=== PATIENT | female | born 1945 | race Caucasian/White ===

== ENCOUNTER 2021-10-21 21:05 | Inpatient (IN) | payer MEDICARE, BC ==
[~2021-10-21] VITALS: Ht 157.5 cm; Wt 78.5 kg
--- NOTE | 2021-10-21 21:15 | NUR ---
TO ER BED 7. [id number] C/O ABD PAIN, FEVER AND CONFUSION NOTED BY STARTED YESTERDAY. PT AAOX2. AMBULATORY W/ ASSISTANCE. PT DENIES ANY CHEST PAIN. O2 SAT NOTED AT 95 ON ROOM AIR, HX COPD. CONNECTED TO MONITOR. AWAITING MD COHEN
--- NOTE | 2021-10-21 21:23 | NUR ---
XRAY AT BEDSIDE
--- NOTE | 2021-10-21 21:23 | NUR ---
IV LINE ESTABLISHED, RHAND 18G. BLOOD COLLECTED AND SENT TO LAB
--- NOTE | 2021-10-21 21:29 | NUR ---
PT TAKEN TO CT VIA RAMÍREZ
[2021-10-21 21:44] LABS: BASOPHILS % (AUTO) 0.2 % (0.0-2.0); EOSINOPHILS % (AUTO) 0.4 % (0.0-6.0); HEMATOCRIT 43 % (33-45); HEMOGLOBIN 14.7 g/dL (11.5-14.8); LYMPHOCYTES # (AUTO) 0.5 K/uL (0.8-4.8); LYMPHOCYTES % (AUTO) 6.9 % (20.0-44.0); MEAN CORPUSCULAR HGB CONC 35 g/dl (31.0-36.0); MEAN CORPUSCULAR VOLUME 94 fL (82-100); MONOCYTES # (AUTO) 0.1 K/uL (0.1-1.30); MONOCYTES % (AUTO) 1.1 % (2.0-12.0); NEUTROPHILS # (AUTO) 6.4 K/uL (1.8-8.9); NEUTROPHILS % (AUTO) 91.4 % (43.0-81.0); PLATELET COUNT (AUTO) 216 K/uL (150-450)
[2021-10-21 22:02] LABS: CALCIUM, SERUM 8.9 mg/dL (8.5-10.1); CARBON DIOXIDE 24 mmol/L (21-32); CHLORIDE 104 mmol/L (98-107); GLUCOSE 117 mg/dL (74-106); POTASSIUM 3.9 mmol/L (3.5-5.1); SODIUM SERUM 138 mmol/L (136-145); UREA NITROGEN, BLOOD 19 mg/dL (7-18)
[2021-10-21 22:21] LABS: ALANINE AMINOTRANSFERASE 849 U/L (12-78); ALBUMIN 3.8 g/dL (3.4-5.0); ALKALINE PHOSPHATASE 215 U/L (46-116); ASPARTATE AMINOTRANSFERASE 1396 U/L (15-37); BILIRUBIN,DIRECT 1.4 mg/dL (0.0-0.2); BILIRUBIN,TOTAL 2.1 mg/dL (0.2-1.0); LIPASE 126 U/L (73-393); TOTAL PROTEIN, SERUM 6.8 g/dL (6.4-8.2)
--- NOTE | 2021-10-21 22:25 | NUR ---
URINE SAMPLE COLLECTED AND SENT TO LAB
[2021-10-21 22:30] LABS: BILIRUBIN,URINE NEGATIVE (NEGATIVE); COLOR,URINE YELLOW (YELLOW); LEUKOCYTE ESTERASE ,URINE NEGATIVE (NEGATIVE); NITRITE, URINE NEGATIVE (NEGATIVE); PROTEIN,URINE NEGATIVE (NEGATIVE); UGLUCOSE NEGATIVE (NEGATIVE); UROBILINOGEN,URINE 0.2 EU/dL (0.2)
[2021-10-21] MEDS ORDERED: IV NS 0.9% 1,000 ML IV ONE (22:30)
[2021-10-21] MEDS ORDERED: VANCOMYCIN 1 GM in IV D5W 250 ML IV ONE ×4 (22:30)
[2021-10-21] MEDS ORDERED: MORPHINE SULFATE INJ 2 MG/ML DISP.SYRIN IV ONE (22:30)
[2021-10-21] MEDS ORDERED: methylPREDNISolone SOD SUCC 125 MG/2ML VIAL IV ONE (22:30)
[2021-10-21] MEDS ORDERED: ONDANSETRON HCL/PF 4 MG/2 ML VIAL IVP ONE (22:30)
[2021-10-21] MEDS ORDERED: CEFEPIME 1 GM in IV D5W 50 ML IV ONE (22:30)
[2021-10-21] MEDS ORDERED: ALBUTEROL FS 2.5 MG/3 ML VIAL.NEB NEB ONE (22:30)
[2021-10-21] MEDS ORDERED: IV NS 0.9% 1,000 ML BAG IV ONE (22:30)
[2021-10-21] MEDS ORDERED: IPRATROPIUM NEB FS 0.5 MG/2.5 ML AMPUL.NEB NEB ONE (22:30)
--- NOTE | 2021-10-21 22:33 | NUR ---
COVID ANTIGEN SWAB COLLECTED AND SENT TO LAB
[2021-10-21 23:05] LABS: SERUM AMMONIA 52 umol/L (11-32)
[2021-10-21] MEDS ORDERED: ONDANSETRON HCL/PF 4 MG/2 ML VIAL IVP PRN (23:30)
[2021-10-21] MEDS ORDERED: ZOLPIDEM TARTRATE 5 MG TABLET PO PRN (23:30)
[2021-10-21] MEDS ORDERED: MAGNESIUM HYDROXIDE 30 ML UDC PO PRN (23:30)
[2021-10-21] MEDS ORDERED: Z GUARD REMEDY 4 OZ OINT TP PRN (23:30)
[2021-10-21] MEDS ORDERED: MAG HYDROX/AL HYDROX/SIMETH 30 ML UDC PO PRN (23:30)
[2021-10-21] MEDS ORDERED: ACETAMINOPHEN 325 MG TABLET PO PRN (23:30)
[2021-10-21] MEDS ORDERED: MORPHINE SULFATE INJ 2 MG/ML DISP.SYRIN IV PRN (23:30)
--- NOTE | 2021-10-21 23:42 | NUR ---
procalcitonin 2.58
[2021-10-21 23:43] LABS: THYROID STIMULATING HORMONE 2.446 uIU/mL (0.358-3.74)
[2021-10-21 23:44] LABS: ACETAMINOPHEN < 2 ug/ml (10-30)
[2021-10-22] MEDS ORDERED: IOHEXOL-350 100 ML VIAL IV ONE (01:27)
[2021-10-22] MEDS ORDERED: CEFEPIME 1 GM VIAL ONE (01:55)
[2021-10-22] MEDS ORDERED: VANCOMYCIN 1 GM VIAL ONE (01:55)
[2021-10-22] MEDS ORDERED: methylPREDNISolone SOD SUCC 125 MG/2ML VIAL ONE (01:55)
--- NOTE | 2021-10-22 02:12 | NUR ---
us tech at bed side
--- NOTE | 2021-10-22 02:54 | NUR ---
DIAN PROVIDED AT BEDSIDE.
[2021-10-22] MEDS ORDERED: MAGN400T8 PO (03:22)
[2021-10-22] MEDS ORDERED: BIOF1TAB7 PO (03:22)
[2021-10-22] MEDS ORDERED: CHOL100L MC (03:22)
[2021-10-22] MEDS ORDERED: FLUT1BLS6 IH (03:22)
[2021-10-22] MEDS ORDERED: BUPR-54 PO (03:22)
[2021-10-22] MEDS ORDERED: [UNRECOGNIZED DRUG - CODE] PO (03:22)
[2021-10-22] MEDS ORDERED: CELE200C PO (03:22)
[2021-10-22] MEDS ORDERED: GLUC-141 PO (03:22)
[2021-10-22] MEDS ORDERED: ASCO100058 PO (03:22)
[2021-10-22] MEDS ORDERED: CETI-355 PO (03:22)
[2021-10-22] MEDS ORDERED: MELO-107 PO (03:22)
[2021-10-22] MEDS ORDERED: ATOR10TA PO (03:22)
[2021-10-22] MEDS ORDERED: LEVO75TA7 PO (03:22)
[2021-10-22] MEDS ORDERED: LANS30CA56 PO (03:22)
[2021-10-22] MEDS ORDERED: PYRI50TA15 PO (03:22)
[2021-10-22] MEDS ORDERED: CALC-1239 PO (03:22)
[2021-10-22] MEDS ORDERED: IPRATROPIUM NEB FS 0.5 MG/2.5 ML AMPUL.NEB ONE (03:42)
[2021-10-22] MEDS ORDERED: ALBUTEROL FS 2.5 MG/3 ML VIAL.NEB ONE (03:42)
--- NOTE | 2021-10-22 03:48 | NUR ---
REPORT GIVEN TO AMA.
[2021-10-22 04:10] VITALS: BP 110/62
--- NOTE | 2021-10-22 04:10 | NUR ---
EMPLOYEE WELFARE MANAGER NOTES: RECEIVED REPORT FROM YVONNE ROBINS. PT TRANSFERRED TO [facility] FROM ER VIA GURNEY, PLACED IN ROOM 108 BED 1. PT AWAKE, ALERT/ORIENTED X3 AND VERBALLY RESPONSIVE. ON O2 AT 2L/MIN VIA N/C, O2 SAT 93%. PT TOLERATED WELL. IV ACCESS ON RT HAND#18G AND LAC#18G INTACT AND PATENT. NO S/S OF INFILTRATIONS. BODY ASSESSMENT DONE. NO OPEN SKIN OR SKIN DISCOLORATIONS NOTED. NO C/O PAIN OR DISCOMFORT AT THIS MOMENT. NO ACUTE DISTRESS. CONTINENT ON BLADDER AND BOWEL. ASSISTED HER TO THE BATHROOM. ALL SAFETY MEASURES IN PLACE. BED IN LOWEST POSITION AND LOCKED. SIDE RAILS UP X2, PLACE CALL LIGHT WITH IN REACH. WILL CONTINUE TO MONITOR.
--- NOTE | 2021-10-22 04:13 | NUR ---
PT TRANSFERRED TO [facility] 108 VIA ACLS PROTOCOL. VSS. PT TOLERATING O2 2LPM N/C WELL AT 98%
[2021-10-22] MEDS: IV D5/0.45 NACL 1,000 ML IV PRN (06:44)
--- NOTE | 2021-10-22 07:30 | NUR ---
CARE PROGRAM DIRECTOR NOTES PT IN BED, AWAKE, ALERT AND ORIENTED, NO COMPLAINT OF PAIN AT THIS TIME, RESPIRATIONS NORMAL, CALL LIGHT WITHIN REACH, NEEDS ATTENDED, KEPT NPO FOR NOW.
[2021-10-22 07:41] LABS: BASOPHILS % (AUTO) 0.1 % (0.0-2.0); EOSINOPHILS % (AUTO) 0.1 % (0.0-6.0); HEMATOCRIT 41 % (33-45); HEMOGLOBIN 13.9 g/dL (11.5-14.8); LYMPHOCYTES # (AUTO) 0.3 K/uL (0.8-4.8); LYMPHOCYTES % (AUTO) 2.2 % (20.0-44.0); MEAN CORPUSCULAR HGB CONC 34 g/dl (31.0-36.0); MEAN CORPUSCULAR VOLUME 96 fL (82-100); MONOCYTES # (AUTO) 0.2 K/uL (0.1-1.30); MONOCYTES % (AUTO) 1.6 % (2.0-12.0); NEUTROPHILS # (AUTO) 11.1 K/uL (1.8-8.9); PLATELET COUNT (AUTO) 207 K/uL (150-450); RED BLOOD CELL COUNT(AUTO) 4.33 MIL/uL (4.0-5.2); WHITE BLOOD COUNT (AUTO) 11.6 K/uL (4.3-11.0)
[2021-10-22 08:00] VITALS: BP 152/77
[2021-10-22 08:24] LABS: ALBUMIN 3.7 g/dL (3.4-5.0); ALKALINE PHOSPHATASE 202 U/L (46-116); BILIRUBIN,DIRECT 3.1 mg/dL (0.0-0.2); BILIRUBIN,TOTAL 3.6 mg/dL (0.2-1.0); CALCIUM, SERUM 8.4 mg/dL (8.5-10.1); CARBON DIOXIDE 25 mmol/L (21-32); CHLORIDE 110 mmol/L (98-107); GLUCOSE 182 mg/dL (74-106); MAGNESIUM 2.1 mg/dL (1.8-2.4); PHOSPHORUS 3.2 mg/dL (2.5-4.9); POTASSIUM 3.7 mmol/L (3.5-5.1); SODIUM SERUM 144 mmol/L (136-145); TOTAL PROTEIN, SERUM 6.6 g/dL (6.4-8.2); UREA NITROGEN, BLOOD 15 mg/dL (7-18)
[2021-10-22 08:26] LABS: ALANINE AMINOTRANSFERASE 1504 U/L (12-78); ASPARTATE AMINOTRANSFERASE 1438 U/L (15-37)
[2021-10-22] MEDS: ASPIRIN 81 MG TAB.CHEW PO SCH ×2 (08:50→08:56)
[2021-10-22] MEDS: LACTULOSE 10 G/15 ML UDC (PYXIS) PO SCH ×2 (08:50→16:17)
[2021-10-22] MEDS ORDERED: MULT-1200 PO (08:58)
[2021-10-22] MEDS ORDERED: CHOL400C8 PO (08:58)
[2021-10-22] MEDS ORDERED: ALBU18HF2 IH (08:58)
[2021-10-22] MEDS ORDERED: PANTOPRAZOLE 40 MG VIAL IV SCH (09:00)
[2021-10-22 12:00] VITALS: BP 133/76
[2021-10-22] MEDS ORDERED: HOME MED MISCELLANEOUS XX SCH ×4 (13:30)
[2021-10-22] MEDS ORDERED: ALBUTEROL FS 2.5 MG/0.5 ML VIAL.NEB IH PRN (13:30)
[2021-10-22] MEDS ORDERED: LACTULOSE 10 G/15 ML UDC (PYXIS) PO PRN (13:30)
--- NOTE | 2021-10-22 13:35 | NUR ---
DRILLING AND PRODUCTION SUPERINTENDENT NOTES PT SEEN AND EXAMINED BY DR. BAKER, PLAN OF CARE DISCUSSED WITH PT AND FAMILY AT BEDSIDE, VERBALIZED UNDERSTANDING.
[2021-10-22] MEDS: CEFEPIME 2 GM in IV D5W 100 ML IV SCH (14:38)
[2021-10-22 16:00] VITALS: BP 139/76
[2021-10-22] MEDS: MELOXICAM 7.5 MG TABLET PO SCH (16:17)
[2021-10-22] MEDS: ATORVASTATIN 10 MG TABLET PO SCH (16:18)
[2021-10-22] MEDS: BUPROPION XL 150 MG TAB.ER.24 PO SCH (16:18)
[2021-10-22] MEDS: ASCORBIC ACID 500 MG TABLET PO SCH (16:18)
[2021-10-22] MEDS: MULTIVIT W/MINERALS 1 TAB TABLET PO SCH (16:18)
[2021-10-22] MEDS: LEVOTHYROXINE SODIUM 75 MCG TABLET PO SCH (16:18)
[2021-10-22] MEDS: MAGNESIUM OXIDE 400 MG TABLET PO SCH (16:19)
[2021-10-22] MEDS: PYRIDOXINE HCL 50 MG TABLET PO SCH (16:19)
--- NOTE | 2021-10-22 19:00 | NUR ---
POST DOC FELLOWSHIP NOTES PT IN BED, AWAKE, ALERT AND ORIENTED, DENIES PAIN, NOT IN DISTRESS, ABLE TO AMBULATE WITH STEADY GAIT TO THE BATHROOM, TOLERATES CURRENT DIET, CALL LIGHT WITHIN REACH, IV FLUIDS INFUSING WELL, ALL DUE MEDS GIVEN ORDERED.
[2021-10-22 20:00] VITALS: BP 134/78
--- NOTE | 2021-10-22 20:13 | NUR ---
water treatment plant supervisor Opening Note Pt received in bed awake, A&O x3-4, calm, cooperative. Endorsed to me by marco a nurse pt is off and on NC when she uses the restroom. Upon checking pt, she is off of NC, pt reports she "feels ok without it"; will monitor O2sat as needed. Pt attached to external monitor, currently SR with HR. Pt ambulatory with steady gait. IV access LAC 18G intact and patent; no s/s of infiltration, currently has D5 1/2 NS running at 100 ml/hr. Bed in lowest position, call light within reach, side rails up x2. Will continue to monitor throughout the night.
[2021-10-22] MEDS: cetrizine 10 MG TABLET PO SCH (21:50)
[2021-10-22] MEDS: CALCIUM CARB 600MG /VIT D 1 EACH TABLET PO SCH (21:58)
[2021-10-22] MEDS: VANCOMYCIN 1.25 GM in IV D5W 250 ML IV SCH (22:00)
--- NOTE | 2021-10-22 23:35 | NUR ---
[facility]/BAND SEWER REPORT RECIEVED FROM YVONNE APONTE FOR CONTINUITY OF CARE. CALL LIGHT IS WITHIN REACH AT THIS TIME. NO ACUTE DISTRESS SEEN AT THIS TIME.
[2021-10-23] VITALS: BP 141/92
--- NOTE | 2021-10-23 00:45 | NUR ---
[facility]/CLIP WRAPPER NEW IV TO RIGHT FA#20G. IVF CHANGED OVER TO THIS SITE. OTHER SITE WAS SWOLLEN AND RED, D/C'D THESE HEPLOCKS
[2021-10-23] MEDS: CEFEPIME 2 GM in IV D5W 100 ML IV SCH ×2 (02:12→14:15)
[2021-10-23 04:00] VITALS: BP 112/70
[2021-10-23] MEDS: IV D5/0.45 NACL 1,000 ML IV PRN ×2 (04:12→18:42)
[2021-10-23] MEDS: LEVOTHYROXINE SODIUM 75 MCG TABLET PO SCH (06:08)
[2021-10-23 06:20] LABS: ALANINE AMINOTRANSFERASE 1053 U/L (12-78); ALBUMIN 3.4 g/dL (3.4-5.0); ALKALINE PHOSPHATASE 171 U/L (46-116); ASPARTATE AMINOTRANSFERASE 573 U/L (15-37); BILIRUBIN,DIRECT 2.3 mg/dL (0.0-0.2); BILIRUBIN,TOTAL 2.8 mg/dL (0.2-1.0); CALCIUM, SERUM 8.7 mg/dL (8.5-10.1); CARBON DIOXIDE 25 mmol/L (21-32); CHLORIDE 108 mmol/L (98-107); GLUCOSE 129 mg/dL (74-106); POTASSIUM 3.4 mmol/L (3.5-5.1); SERUM AMMONIA 13 umol/L (11-32); SODIUM SERUM 141 mmol/L (136-145); TOTAL PROTEIN, SERUM 6.4 g/dL (6.4-8.2); UREA NITROGEN, BLOOD 14 mg/dL (7-18)
[2021-10-23 06:37] LABS: BASOPHILS % (AUTO) 0.1 % (0.0-2.0); EOSINOPHILS % (AUTO) 0.6 % (0.0-6.0); HEMATOCRIT 38 % (33-45); HEMOGLOBIN 13.1 g/dL (11.5-14.8); LYMPHOCYTES # (AUTO) 0.9 K/uL (0.8-4.8); LYMPHOCYTES % (AUTO) 8.4 % (20.0-44.0); MEAN CORPUSCULAR HGB CONC 35 g/dl (31.0-36.0); MEAN CORPUSCULAR VOLUME 94 fL (82-100); MONOCYTES # (AUTO) 0.4 K/uL (0.1-1.30); MONOCYTES % (AUTO) 3.8 % (2.0-12.0); NEUTROPHILS # (AUTO) 8.8 K/uL (1.8-8.9); NEUTROPHILS % (AUTO) 87.1 % (43.0-81.0); PLATELET COUNT (AUTO) 180 K/uL (150-450); RED BLOOD CELL COUNT(AUTO) 4.04 MIL/uL (4.0-5.2); WHITE BLOOD COUNT (AUTO) 10.1 K/uL (4.3-11.0)
[2021-10-23] MEDS ORDERED: LEVOTHYROXINE SODIUM 75 MCG TABLET PO SCH (07:30)
--- NOTE | 2021-10-23 07:30 | NUR ---
RN OPENING NOTE PATIENT IS IN BED, AWAKE, ON SEMI-STUBBS'S POSITION, ALERT ORIENTED X 4. ON ROOM AIR WITH O2 SATURATION AT 97%. SINUS RHYTHM ON E BUSINESS CONSULTANT. WITH RIGHT FOREARM IV LINE INFUSING WITH D5 1/2 NS AT 100 ML/HR. DENIES PAIN, BREATHING UNLABORED AND NOT IN ANY FORM OF DISTRESS. BED IS LOCKED IN LOWEST POSITION, 3 SIDE RAILS UP, CALL LIGHT WITHIN REACH. WILL CONTINUE TO MONITOR THROUGHOUT SHIFT.
[2021-10-23 08:00] VITALS: BP 153/78
[2021-10-23] MEDS ORDERED: MULTIVIT W/MINERALS 1 TAB TABLET PO SCH (09:00)
[2021-10-23] MEDS ORDERED: PYRIDOXINE HCL 50 MG TABLET PO SCH (09:00)
[2021-10-23] MEDS ORDERED: MAGNESIUM OXIDE 400 MG TABLET PO SCH (09:00)
[2021-10-23] MEDS ORDERED: MELOXICAM 7.5 MG TABLET PO SCH (09:00)
[2021-10-23] MEDS ORDERED: ASCORBIC ACID 500 MG TABLET PO SCH (09:00)
[2021-10-23] MEDS ORDERED: CELECOXIB 100 MG CAPSULE PO SCH (09:00)
[2021-10-23] MEDS ORDERED: BUPROPION XL 150 MG TAB.ER.24 PO SCH (09:00)
[2021-10-23] MEDS ORDERED: ATORVASTATIN 10 MG TABLET PO SCH (09:00)
[2021-10-23] MEDS ORDERED: cetrizine 10 MG TABLET PO SCH (09:00)
[2021-10-23] MEDS ORDERED: CALCIUM CARB 600MG /VIT D 1 EACH TABLET PO SCH (09:00)
[2021-10-23] MEDS: ASPIRIN 81 MG TAB.CHEW PO SCH (09:10)
[2021-10-23] MEDS: LACTULOSE 10 G/15 ML UDC (PYXIS) PO SCH ×3 (09:11→17:20)
[2021-10-23] MEDS: PYRIDOXINE HCL 50 MG TABLET PO SCH (09:11)
[2021-10-23] MEDS: ATORVASTATIN 10 MG TABLET PO SCH (09:11)
[2021-10-23] MEDS: ASCORBIC ACID 500 MG TABLET PO SCH (09:11)
[2021-10-23] MEDS: MAGNESIUM OXIDE 400 MG TABLET PO SCH (09:12)
[2021-10-23] MEDS: BUPROPION XL 150 MG TAB.ER.24 PO SCH (09:12)
[2021-10-23] MEDS: MULTIVIT W/MINERALS 1 TAB TABLET PO SCH (09:12)
[2021-10-23] MEDS: TRELEGY ELLIPTA INH SCH (09:17)
[2021-10-23] MEDS: PANTOPRAZOLE 40 MG TABLET.DR PO SCH (09:20)
[2021-10-23] MEDS: MELOXICAM 7.5 MG TABLET PO SCH (09:52)
[2021-10-23] MEDS ORDERED: POTASSIUM CHLORIDE 20 MEQ POWDER PACKET PO SCH (11:00)
[2021-10-23 12:00] VITALS: BP 159/84
[2021-10-23 16:00] VITALS: BP 162/81
--- NOTE | 2021-10-23 16:20 | NUR ---
SS Consult: SS Consult requested for code stroke. The pt. is a 76-year-old female who was admitted to [facility] due to Altered Mental Status, transaminitis per EMR. Per EMR, the pt. has a history of COPD, tobacco use. SW met with pt. bedside. The pt. was alert & oriented x 4 and makes good eye contact. The pt. appears well-groomed. Pt. denies SI/HI and denies hallucinations. Pt.s , Diomedes Gutierrez cell: [phone] was was at bedside. Pt. stated that she lives with her at [facility] [facility] [facility] [address]; [phone]]. Per pt. she was independent with her ADLs prior to admission but he PT at [facility] recommended walker. Pt. stated she does not have one at home. SW provided empowerment after stroke educational material and pt. accepted it. Pt. denies drug abuse and drinks occasionally. Pt. denies history of mental health illness but states she is on some medication for depression. Pt. stated her support system is her son, Ajay Gutierrez [phone]. Plan: Pt. stated she would like to return home [[address] [facility]. [address] [facility] [address]; [phone]]. with when ready for discharge. SW provided stroke empowerment resources. Pt. accepted them. Pt. scored an 8 on the post stroke depression scale. DANIELLA notified charge nurse, Carla that pt. requires Psych Consult.
--- NOTE | 2021-10-23 19:24 | NUR ---
RN CLOSING NOTE PATIENT REMAINED STABLE THROUGHOUT SHIFT. WITH RIGHT FOREARM IV LINE INTACT AND PATENT. BREATHING UNLABORED, DENIES PAIN, AND NOT IN ANY FORM OF DISTRESS. BED IS LOCKED IN LOWEST POSITION, 3 SIDE RAILS UP, CALL LIGHT WITHIN REACH. WILL ENDORSE TO MANAGER SOFTWARE NURSE.
--- NOTE | 2021-10-23 19:30 | NUR ---
SERVICE CONSULTANT OPENING NOTE RECEIVED PATIENT IN BED, AWAKE, ON SEMI-STUBBS'S POSITION, ALERT/ORIENTED X 4. CURRENTLY ON ROOM AIR, TOLERATING WELL WITH O2 SATURATION OF 97%. SINUS RHYTHM ON AUTOMATION CONTROL INTEGRATOR WITH HR OF 86. IV ACCESS NOTED IN RIGHT FOREARM INFUSING D5 1/2 NS AT 100 ML/HR. DENIES PAIN, BREATHING UNLABORED AND PT IS NOT IN ANY FORM OF DISTRESS. ALL SAFETY MEASURES IN PLACE: BED IS LOCKED IN LOWEST POSITION, 3 SIDE RAILS UP, CALL LIGHT WITHIN REACH. WILL CONTINUE TO MONITOR THROUGHOUT THE SHIFT.
[2021-10-23 20:00] VITALS: BP 143/74
[2021-10-23] MEDS: CALCIUM CARB 600MG /VIT D 1 EACH TABLET PO SCH (21:32)
[2021-10-23] MEDS: cetrizine 10 MG TABLET PO SCH (21:32)
[2021-10-23] MEDS: VANCOMYCIN 1.25 GM in IV D5W 250 ML IV SCH (22:06)
[2021-10-24] VITALS: BP 155/79
[2021-10-24] MEDS: CEFEPIME 2 GM in IV D5W 100 ML IV SCH (01:01)
[2021-10-24 04:00] VITALS: BP 145/83
--- NOTE | 2021-10-24 06:10 | NUR ---
RN NOTE PT'S IV LINE GOT BLOODY. REMOVED IT ALTOGETHER AND PUT A NEW IV LINE ON HER LFA #22G WITH THE HELP OF YVONNE SAENZ.
--- NOTE | 2021-10-24 06:53 | NUR ---
OPTICAL EFFECTS LAYOUT PERSON CLOSING NOTE PT REMAINED STABLE THROUGHOUT THE NIGHT. PATIENT IN BED, ON SEMI-STUBBS'S POSITION, ALERT/ORIENTED X 4. CAN VERBALIZE NEEDS WELL. ON ROOM AIR, TOLERATING WELL WITH O2 SATURATION OF 97%. SINUS RHYTHM ON SALES/MARKETING WITH HR IN THE 60S. NEW IV ACCESS NOTED IN LEFT FOREARM, #22g INFUSING D5 1/2 NS AT 100 ML/HR. DENIES PAIN, BREATHING UNLABORED AND PT IS NOT IN ANY FORM OF DISTRESS. ALL DUE MEDS GIVEN. ALL NEEDS ATTENDED TO. SAFETY MEASURES IMPLEMENTED: BED IS LOCKED IN LOWEST POSITION, 3 SIDE RAILS UP, CALL LIGHT WITHIN REACH. WILL ENDORSE TO AM SHIFT NURSE FOR CARROLL.
[2021-10-24 06:58] LABS: CALCIUM, SERUM 8.4 mg/dL (8.5-10.1); CARBON DIOXIDE 23 mmol/L (21-32); CHLORIDE 110 mmol/L (98-107); CREATININE 0.8 mg/dL (0.6-1.3); GLUCOSE 120 mg/dL (74-106); POTASSIUM 3.4 mmol/L (3.5-5.1); SODIUM SERUM 142 mmol/L (136-145); UREA NITROGEN, BLOOD 9 mg/dL (7-18)
[2021-10-24 08:00] VITALS: BP 132/78
--- NOTE | 2021-10-24 08:00 | NUR ---
OPTOELECTRONIC TECHNICIAN OPENING NOTE RECEIVED PATIENT IN BED, AWAKE, ON SEMI-STUBBS'S POSITION, ALERT/ORIENTED X 4. TOLERATING NC WELL WITH O2 SATURATION OF 97%. SINUS RHYTHM ON AUTO TIRE RECAPPER WITH HR OF 60S. IV ACCESS NOTED IN LEFT FOREARM INFUSING D5 1/2 NS AT 100 ML/HR. DENIES PAIN, BREATHING UNLABORED AND PT IS NOT IN ANY FORM OF DISTRESS. ALL SAFETY MEASURES IN PLACE: BED IS LOCKED IN LOWEST POSITION, 3 SIDE RAILS UP, CALL LIGHT WITHIN REACH. WILL CONTINUE TO MONITOR.
[2021-10-24] MEDS: LEVOTHYROXINE SODIUM 75 MCG TABLET PO SCH (08:21)
[2021-10-24] MEDS: BUPROPION XL 150 MG TAB.ER.24 PO SCH (08:22)
[2021-10-24] MEDS: MAGNESIUM OXIDE 400 MG TABLET PO SCH (08:22)
[2021-10-24] MEDS: ASPIRIN 81 MG TAB.CHEW PO SCH (08:22)
[2021-10-24] MEDS: MULTIVIT W/MINERALS 1 TAB TABLET PO SCH (08:23)
[2021-10-24] MEDS: ASCORBIC ACID 500 MG TABLET PO SCH (08:23)
[2021-10-24] MEDS: LACTULOSE 10 G/15 ML UDC (PYXIS) PO SCH ×2 (08:24→09:00)
[2021-10-24] MEDS: MELOXICAM 7.5 MG TABLET PO SCH (08:24)
[2021-10-24] MEDS: ATORVASTATIN 10 MG TABLET PO SCH (08:24)
[2021-10-24] MEDS: PANTOPRAZOLE 40 MG TABLET.DR PO SCH (08:24)
[2021-10-24] MEDS: TRELEGY ELLIPTA INH SCH (08:25)
[2021-10-24] MEDS: PYRIDOXINE HCL 50 MG TABLET PO SCH (08:28)
[2021-10-24] MEDS ORDERED: POTASSIUM CHLORIDE 20 MEQ TAB.PRT.SR PO ONE ×2 (09:30→14:00)
[2021-10-24 12:00] VITALS: BP 109/70
[2021-10-24 16:00] VITALS: BP 126/71
--- NOTE | 2021-10-24 17:30 | NUR ---
CEMENT RUBBERHOUSEKEEPER SUPERVISOR NOTE REVIEWED DISCHARGE INSTRUCTION WITH PATIENT. VERBALIZED UNDERSTANDING. PT DISCHARGED VIA WHEELCHAIR WITH BELONGINGS, PRESCRIPTIONS AND INSTRUCTIONS. IV AND TELEMETRY REMOVED. PT LEFT HOSPITAL TO HOME SELF CARE. V/S: T 99, HR 94, RR 19, 02SAT 92, BP 126/71.
== END 2021-10-24 16:45 | disposition home or self-care (01) | DRG 871 ==
LOC: ER 21:07 → TRANSITION 10-22 01:55 → TELE1 10-22 03:05
PROVIDERS: ADMIT Student in an Organized Health Care Education/Training Program; ATTEND Nurse Practitioner Acute Care
DX: A41.9 Sepsis, unspecified organism (principal); G93.41 Metabolic encephalopathy; E87.2 Acidosis; E72.20 Disorder of urea cycle metabolism, unspecified; R74.01 Elevation of levels of liver transaminase levels; Z87.440 Personal history of urinary (tract) infections; Z88.1 Allergy status to other antibiotic agents; J44.9 Chronic obstructive pulmonary disease, unspecified; Z79.51 Long term (current) use of inhaled steroids; Z79.899 Other long term (current) drug therapy; E78.5 Hyperlipidemia, unspecified; E80.6 Other disorders of bilirubin metabolism; E80.4 Gilbert syndrome; K76.0 Fatty (change of) liver, not elsewhere classified; E03.9 Hypothyroidism, unspecified; E66.9 Obesity, unspecified; F32.A Depression, unspecified; K44.9 Diaphragmatic hernia without obstruction or gangrene; Z68.31 Body mass index [BMI] 31.0-31.9, adult; Z87.891 Personal history of nicotine dependence; Z20.822 Contact with and (suspected) exposure to COVID-19
CPT/HCPCS: 36415; 70450-TC; 70496-TC; 70498-TC; 71045-TC; 74181-TC; 76700-TC; 80048-TC; 80076-TC; 82140-TC; 82550-TC; 83605-TC; 83690-TC; 83735-TC; 84100-TC; 84443-TC; 84484-TC; 85025-TC; 85610-TC; 87040-TC; 87081-TC; 92507-TC; 92521; 92526; 92611-TC; 93307-TC; 94799-TC; 97116-TC; 97530-TC; C9113; C9803; G0378; G0480; J0692; J2270; J2405; J2930; J3370; J3490; J7030; J7040; J7060; Q9967